=== PATIENT | female | born 1985 | race Caucasian/White ===

== ENCOUNTER → 2020-03-28 09:10 | Outpatient (BNVA) | payer MEDICAID, SELFPAY | PROVIDERS: Family Provider Nurse Practitioner Family; PCP Nurse Practitioner Family; Visit Provider Counselor Professional | DX: F41.1 Generalized anxiety disorder (principal) | CPT/HCPCS: 90834 ==

== ENCOUNTER → 2020-04-11 08:12 | Outpatient (BNVA) | payer MEDICAID, SELFPAY | PROVIDERS: Family Provider Nurse Practitioner Family; PCP Nurse Practitioner Family; Visit Provider Counselor Professional | DX: F41.1 Generalized anxiety disorder (principal) | CPT/HCPCS: 90834 ==

== ENCOUNTER → 2020-06-13 08:24 | Outpatient (BNVA) | payer MEDICAID, SELFPAY | PROVIDERS: Family Provider Nurse Practitioner Family; PCP Nurse Practitioner Family; Visit Provider Counselor Professional | DX: F41.1 Generalized anxiety disorder (principal) | CPT/HCPCS: 90834 ==

== ENCOUNTER 2022-11-03 10:44 | Day surgery (SDC) | payer MEDICAID, SELFPAY ==
[2022-11-02 10:36] VITALS: BMI 55.4
[2022-11-03] VITALS (9 sets, daily range): BP systolic 108–178; BP diastolic 79–102; PULSE 90–100; RESP 16–97; TEMP 36.1–36.6; O2SAT 94–100
[2022-11-03 11:37] LABS: OR HCG Qualitative Urine Negative (Negative)
[2022-11-03] MEDS: sodium chloride 0.9% 1,000 ML 30 ML IV (11:40)
--- NOTE | 2022-11-03 13:09 | P.ANESASSM_ITS ---
Pre-Anesthetic Assessment Height/Weight: Height 1.65 m Weight 151.046 kg Temp Pulse Resp BP Pulse Ox O2 Del Method 97.6 F 92 18 142/100 96 11/03/22 11:42 11/03/22 11:42 11/03/22 11:42 11/03/22 11:42 11/03/22 11:42 11/03/22 11:42 Preop Diagnosis: AUB Operation Date: 11/03/22 13:00 Proposed Procedures p Laparoscopic bilateral salpingectomy 78624,Z30.2(Bilateral) - Daya Hwang MD Familial anesthetic complications: None Was Beta Jessie taken within 24 hours: N/A Was Clonidine taken within 24 hours: N/A Last intake: Intake Last Liquid Date 11/02/22 Last Liquid Time 23:30 Last Solid Date 11/02/22 Last Solid Time 23:30 Social No alcohol and No tobacco Exam alert, oriented x 3, clear to auscultation bilaterally and regular rate & rhythm Airway Mallampati: Class II Dentition: other (no teeth) Pulmonary Asthma Metabolic Morbid Obesity [facility] [place] Fibromyalgia Anesthetic Plan ASA status: 3 Anesthesia: General Risk of > 500 ml blood loss (7ml/kg in children): No Medications/Allergies Home Medications Medication Instructions Recorded Confirmed Last Taken Type cyclobenzaprine 10 mg tablet 10 mg PO TID PRN muscle spasms 09/03/22 11/02/22 11/02/22 History drospirenone (contraceptive) 4 mg 1 tab PO DAILY 09/03/22 11/02/22 11/02/22 History (28) tablet venlafaxine 37.5 mg 37.5 mg PO DAILY 09/03/22 11/02/22 11/02/22 History capsule,extended release 24 hr ibuprofen 200 mg tablet 800 mg PO Q6H PRN Pain 11/02/22 11/02/22 10/27/22 History albuterol 90 mcg/actuation aerosol 90 mcg inhalation PRN 11/03/22 11/03/22 Unknown History inhaler fluticasone propionate 50 50 mcg intranasal PRN 11/03/22 11/03/22 Unknown History mcg/actuation nasal spray,suspension Allergies Allergy/AdvReac Type Severity Reaction Status Date / Time No Known Allergies Allergy Verified 11/03/22 11:24 Current Medications Generic Name Dose Route Start Last Admin Trade Name Freq PRN Reason Stop Dose Admin Sodium Chloride 1,000 mls @ 30 mls/hr 11/03/22 11:00 11/03/22 11:40 Sodium Chloride 0.9% IV 11/04/22 10:59 30 mls/hr .Q24H LAURA Administration PFSH Anesthesia Medical History (Updated 10/26/22 @ 11:45 by Daya Hwang MD) Anxiety and depression Fibromyalgia Restless leg Scoliosis Surgical History (Updated 09/05/22 @ 15:29 by Daya Hwang MD) History of delivery x2 Family History (Updated 09/03/22 @ 08:12 by Deana Jang LPN) Father Diabetes Grandfather Heart disease Maternal Mother Hypertension Grandmother Uterine cancer Paternal Denies family history of Colon cancer Ovarian cancer Hypercholesteremia Breast cancer Thyroid disease Stroke Data Anesthesia Cardiac Studies: No Data to Display
--- NOTE | 2022-11-03 13:27 | W.PM.OPSUD ---
Surgery/Procedure H&P Update DATE OF PROCEDURE: November 03, 2022 DATE H&P PERFORMED: 10/26/22 H&P UPDATE INFORMATION: I have reviewed H&P completed within last 30 days, I have examined patient prior to procedure and No changes to prior documentation CHANGES TO PREVIOUS DOCUMENTATION: The procedure to be performed is hysteroscopy, dilation and curettage with myosure. The H&P is correct, as well as the orders. There was a scheduling error and the patient has confirmed the procedure is hysteroscoy and not sterilization. PREOP DIAGNOSIS: AUB PLANNED PROCEDURE: Operation Date: 11/03/22 13:00 Proposed Procedures p Hysteroscopy, dilation and curettage with myosure - Daya Hwang MD Related Problem List Diagnoses (1) Morbid obesity with BMI of 50.0-59.9, adult: (2) Abnormal uterine bleeding (AUB):
[2022-11-03] MEDS: ceFAZolin 3,000 MG in sodium chloride 0.9% (100 ml) 100 ML 200 MG IV (13:45)
[2022-11-03] MEDS: miSOPROStol 200 mcg Tablet 800 MCG VAGINAL (14:38)
--- NOTE | 2022-11-03 15:05 | P.OP_ITS ---
Operative Report Date of procedure: November 03, 2022 Pre-op diagnosis: Preop Diagnosis AUB Post-op diagnosis: same Post-op findings: 9 week sized uterus with excessive tissue Procedure done: hysteroscopy, dilation and curettage with myosure Specimens removed/disposition: endometrial curettings to pathology Surgeon: Daya Hwang Anesthesia: MAC Estimated blood loss (mL): 15 IV fluids (mL): 700 Urine output (mL): 50 Complications: none Findings: hysteroscopy deficit 100 ml Condition: stable Disposition: PACU Procedure: The patient was taken to the operating room where monitored anesthesia was administered and to be adequate. She was prepped and draped in the normal sterile fashion in the dorsal lithotomy position in [facility]. A weighted speculum was placed into the vagina and the anterior lip of the cervix grasped with a single-tooth tenaculum. The cervix was stenotic and 800 mcg of cytotec was placed vaginally. The cervix softened and the uterus was sounded to 9 cm. The cervix was dilated to 16 Frisian. The hysteroscope was advanced into the endometrial cavity. There was excessive tissue visualized. The MyoSure device was activated and the tissue was removed. There was bleeding from the beginning, making it difficult to take pictures. For completeness, a sharp curettage was performed after the hysteroscopy. All instruments were removed. The patient tolerated the procedure well. Sponge lap and needle counts were correct x3. She was taken to the recovery room in stable condition.
--- NOTE | 2022-11-03 15:12 | PM.DCS ---
Discharge Providers Date of Admission: 11/03/22 Date of Discharge: November 03, 2022 Attending Provider at Discharge: Daya Hwang MD Primary Care Provider: Sasha Villarreal Diagnoses at Discharge Discharge Diagnosis (1) Morbid obesity with BMI of 50.0-59.9, adult: Status: Acute (2) Abnormal uterine bleeding (AUB): Status: Acute Reason for Visit Reason for Visit: Z30.2 Hospital Course Hospital Course The patient was admitted for surgery. She did well postoperatively and was ready for discharge. Discharge Data Studies Completed and Pending Pending at discharge Category Date Time Status Pathology: Surgical [PTH] Routine Pth 11/03/22 14:44 Ordered Laboratory Results Urine HCG, Qual Negative (Negative) 11/03/22 11:27 Vitals Last Vital Signs Temp 97.6 F 11/03/22 11:42 Pulse 92 11/03/22 11:42 Resp 18 11/03/22 11:42 BP 142/100 11/03/22 11:42 Pulse Ox 96 11/03/22 11:42 O2 Del Method 11/03/22 11:42 O2 Flow Rate 6 11/03/22 15:03 Discharge Plan Discharge Patient Disposition: Home Condition: Stable Prescriptions: Continued cyclobenzaprine 10 mg tablet 10 mg PO TID PRN (Reason: muscle spasms) venlafaxine 37.5 mg capsule,extended release 24hr 37.5 mg PO DAILY drospirenone (contraceptive) 4 mg (28) tablet 1 tab PO DAILY ibuprofen 200 mg Tablet 800 mg PO Q6H PRN (Reason: Pain) albuterol 90 mcg/actuation Aerosol 90 mcg INHALATION PRN fluticasone propionate 50 mcg/actuation [place],Suspension 50 mcg INTRANASAL PRN Discharge Orders: Discharge Order (Routine); Ordered 11/03/22 Ordered By: Daya Hwang Discharge Attestations Time Spent in Discharge Care*: less than 30 min Quality Metrics Clinical Quality Measures [ No reported AMI, CVA or VTE this stay] Coding Level of Care Code Acute Code for Chg Fwd Diagnoses Morbid obesity with BMI of 50.0-59.9, adult E66.01; Z68.43 Abnormal uterine bleeding (AUB) N93.9
[2022-11-03] MEDS: ketorolac 30 mg/mL INJ IVP (15:21)
--- NOTE | 2022-11-03 16:00 | ANE.PACU2 ---
Inpatient post-anesthesia follow up: Airway intact: Yes Vital signs: Temperature 97.9 F Pulse Rate 90 Respiratory Rate 16 Blood Pressure 178/98 Pulse Oximetry 98 Oxygen Delivery Me thod Room Air Oxygen Flow Rate 6 Fraction of Inspir ed Oxygen Hydration adequate: Yes Nausea and vomiting: No Pain level: 1 Mental status: Baseline
== END 2022-11-03 16:40 | disposition home or self-care (01) ==
PROVIDERS: Anesthesiology; PCP Nurse Practitioner Family; Visit Provider Obstetrics & Gynecology
PROC: (CPT 58120; 2022-11-03 12:40)
PROC: 0UDB8ZZ Extraction of Endometrium, Via Natural or Artificial Opening Endoscopic (ICD-10-PCS; CPT 58558; 2022-11-03 12:40)
DX: N93.9 Abnormal uterine and vaginal bleeding, unspecified (principal); J45.909 Unspecified asthma, uncomplicated; E66.01 Morbid (severe) obesity due to excess calories; Z68.43 Body mass index [BMI] 50.0-59.9, adult; M79.7 Fibromyalgia
CPT/HCPCS: 58558; 81025; 84703; 88305; J0330; J0690; J1100; J1885; J2250; J2405; J2704; J3010; J7030

== ENCOUNTER 2023-02-15 14:02 | Emergency (ER) | payer MEDICAID, SELFPAY ==
[2023-02-15 14:29] VITALS: BP 142/89; PULSE 95; RESP 16; TEMP 36.7; O2SAT 98; BMI 53.2
--- NOTE | 2023-02-15 14:38 | W.ED.ABDPA2 ---
HPI - Abdominal Pain General: Chief Complaint: Abdominal Pain Stated Complaint: pain middle abd Time Seen by Provider: 02/15/23 14:33 Source: patient Mode of arrival: ambulatory History of Present Illness: 37-year-old female presents emergency room with complaint of abdominal pain with poor appetite. She has had symptoms for little over 3 weeks now she had went seen her doctor 3 days ago they thought she had a bad gallbladder and had set her up for an ultrasound which is yet to be done. She has had worsening pain today she states anytime she eats pretty much any solid food she gets severe abdominal pain epigastric right upper quadrant region she has not had any acholic stools. No associated vomiting but very nauseous. She has not had any hematochezia or melena. She has not had any dysuria urgency or frequency no history of kidney stones. Previous section hysterectomy. MD elicited complaint: abdominal pain Onset (ago): week(s) (3) Pain Consistency: intermittent Location: RUQ Severity: moderate Quality: cramping Radiation: R flank and back Exacerbating factors: nothing Relieving factors: nothing Associated Symptoms: Reports anorexia, bloating and nausea; Denies belching, change in bowel habits, change in stool character, chills, coffee ground emesis, constipation, GI cramping, diarrhea, dyspepsia, dysuria, excessive flatus, fever(s), heartburn, hematochezia, hematuria, hematemesis, fecal incontinence, loose stools, melena, poor appetite, syncope and vomiting Related Data: Patient : No Review of Systems Const: Denies: fever(s) or chills ENMT: Denies: throat pain, ear or mastoid pain, nasal discharge or nasal congestion Card: Denies: chest pain, palpitations or syncope Resp: Denies: dyspnea, productive cough or non-productive cough GI: Reports: abdominal pain, nausea and bloating; Denies: vomiting, hematemesis, coffee ground emesis, heartburn, diarrhea, constipation, GI cramping, belching, excessive flatus, fecal incontinence, change in bowel habits, change in stool character, hematochezia or melena : Denies: dysuria, urinary frequency, urinary urgency or hematuria Skin/Breast: Denies: rash or pruritus PFSH ED PFSH: Medical History Anxiety and depression Fibromyalgia Restless leg Scoliosis Surgical History History of delivery x2 Family History Father Diabetes Grandfather Heart disease Maternal Mother Hypertension Grandmother Uterine cancer Paternal Denies family history of Colon cancer Ovarian cancer Hypercholesteremia Breast cancer Thyroid disease Stroke Social History Smoking and tobacco status: current every day smoker e-cigarettes E-Cigarette Details: vaporizer device E-cig/vape details: 5% Second hand smoke exposure: Yes Alcohol intake: current Alcohol intake frequency: holidays/special occasions only Alcohol type: beer and hard liquor Substance/Drug Use: never Household members: children Marital status: / service: No Current occupational status: employed Current gender identity: Female Lizette/Mandaen: [employer] Special lizette needs: No Physical Exam Const: GENERAL APPEARANCE: cooperative and comfortable ORIENTATION/CONSCIOUSNESS: Yes awake, Yes oriented to person, Yes oriented to place and Yes oriented to time HENMT: COMMON NORMALS: normocephalic, atraumatic and hearing grossly normal bilaterally HEAD & SCALP: normocephalic and atraumatic Resp: COMMON NORMALS: normal respiratory effort, No retractions, No use of accessory muscles and clear to auscultation bilaterally AUSCULTATION: clear to auscultation bilaterally Cardio: COMMON NORMALS: regular rate, regular rhythm and No murmurs present (Cardio) RATE: regular rate RHYTHM: regular rhythm GI: COMMON NORMALS: No hepatosplenomegaly present AUSCULTATION: Yes normoactive bowel sounds PALPATION: Yes Tenderness to palpation present (GI) Details: RUQ, No Guarding due to palpation present (GI) and Yes No hepatosplenomegaly present Extremity: COMMON NORMALS: normal to inspection, capillary refill normal, no clubbing, cyanosis or edema, no calf tenderness and no pedal edema Neuro: SENSORIUM/ORIENTATION: Yes oriented to person, Yes oriented to place and Yes oriented to time Skin: COMMON NORMALS: no rashes or lesions noted GENERAL SKIN EXAM: no rashes or lesions noted Course Vital Signs: Vital signs: Vital Signs Temperature 98.1 F 02/15/23 14:29 Pulse Rate 94 02/15/23 15:06 Respiratory Rate 12 02/15/23 15:06 Blood Pressure 135/89 02/15/23 15:06 Pulse Oximetry 97 02/15/23 15:06 Oxygen Delivery Me thod Room Air 02/15/23 14:29 MDM - Abdominal Pain Medical Decision Making Ultrasound gallbladder shows cholelithiasis with no evidence of acute cholecystitis White count slightly elevated, liver enzymes T. bili are normal. We discharge patient home discussed biliary colic dietary adjustments that may reduce symptoms discharged home with hydrocodone antiemetics bland diet started on Augmentin have her follow-up with Dr. Sol for definitive care Medical Records I reviewed the patient's medical records. Lab Data I reviewed the patient's lab results. 02/15/23 14:47 02/15/23 14:47 Labs/Radiology: Radiology Impressions Gallbladder Ultrasound 02/15/23 14:52 IMPRESSION: 1. Hepatomegaly diffuse fatty infiltration the liver. 2. Cholelithiasis. 3. No gallbladder wall thickening or pericholecystic fluid. Recommend correlation with biliary function studies. 4. Normal common bile duct measuring 2.5 mm. Laboratory Results WBC 15.4 10^3/uL (4.0-10.0) H 02/15/23 14:47 RBC 4.69 10^6/uL (4.1-5.3) 02/15/23 14:47 Hgb 11.0 g/dL (11.5-15.3) L 02/15/23 14:47 Hct 36.3 % (37.0-47.0) L 02/15/23 14:47 MCV 77.4 fl (81-99) L 02/15/23 14:47 MCH 23.5 pg (28.0-34.0) L 02/15/23 14:47 MCHC 30.3 g/dL (30.0-36.0) 02/15/23 14:47 RDW 13.9 % (12.1-15.1) 02/15/23 14:47 Plt Count 335 10^3/cmm (130-400) 02/15/23 14:47 MPV 9.5 fL (7.4-10.4) 02/15/23 14:47 Neut % (Auto) 74.9 % 02/15/23 14:47 Lymph % (Auto) 18.4 % 02/15/23 14:47 [place] % (Auto) 4.6 % 02/15/23 14:47 Eos % (Auto) 1.2 % 02/15/23 14:47 Baso % (Auto) 0.3 % 02/15/23 14:47 Neut # (Auto) 11.54 10^3/uL (1.8-7.7) H 02/15/23 14:47 Lymph # (Auto) 2.8 10^3/uL (0.8-4.8) 02/15/23 14:47 [place] # (Auto) 0.7 10^3/uL (0.2-0.9) 02/15/23 14:47 Eos # (Auto) 0.2 10^3/uL (0.0-0.8) 02/15/23 14:47 Baso # (Auto) 0.1 10^3/uL (0.0-0.1) 02/15/23 14:47 Nucleated RBC % (auto) 0 % 02/15/23 14:47 Nucleated RBCs # 0.0 /100WBC 02/15/23 14:47 Sodium 138 mmol/L (136-145) 02/15/23 14:47 Potassium 4.1 mmol/L (3.5-5.1) 02/15/23 14:47 Chloride 99 mmol/L (98-107) 02/15/23 14:47 Carbon Dioxide 28 mmol/L (22-29) 02/15/23 14:47 Anion Gap 15.1 (5-19) 02/15/23 14:47 BUN 10 mg/dL (6-20) 02/15/23 14:47 Creatinine 0.6 mg/dL (0.5-0.9) 02/15/23 14:47 GFR Calculation 113.1 mL/min (90-130) 02/15/23 14:47 Glucose 163 mg/dL (65-115) H 02/15/23 14:47 Calculated Osmolality 289 mOsm/kg (285-295) 02/15/23 14:47 Calcium 8.9 mg/dL (8.5-10.5) 02/15/23 14:47 Total Bilirubin 0.2 mg/dL (0.15-1.2) 02/15/23 14:47 AST 8 U/L (0-32) 02/15/23 14:47 ALT 7 U/L (0-33) 02/15/23 14:47 Alkaline Phosphatase 102 U/L (35-105) 02/15/23 14:47 Total Protein 7.3 g/dL (6.6-8.7) 02/15/23 14:47 Albumin 3.7 g/dL (3.5-5.2) 02/15/23 14:47 Globulin 3.6 g/dL (1.3-4.6) 02/15/23 14:47 Lipase 22 U/L (13-60) 02/15/23 14:47 Urine Color Yellow (Yellow) 02/15/23 14:50 Urine Appearance Sl hazy (CLEAR) A 02/15/23 14:50 Urine pH 5 (5-7) 02/15/23 14:50 Ur Specific [place] 1.025 (1.005-1.030) 02/15/23 14:50 Urine Protein Neg (Negative) 02/15/23 14:50 Urine Glucose (UA) Norm (Normal) 02/15/23 14:50 Urine Ketones Negative (Negative) 02/15/23 14:50 Urine Blood Neg (Negative) 02/15/23 14:50 Urine Nitrate Negative (Negative) 02/15/23 14:50 Urine Bilirubin Neg (Negative) 02/15/23 14:50 Urine Urobilinogen Norm mg/dL (Negative) 02/15/23 14:50 Ur Leukocyte Esterase Negative (Negative) 02/15/23 14:50 Urine RBC 0-4 /hpf (0-2) H 02/15/23 14:50 Urine WBC 5-10 /hpf (0-5) H 02/15/23 14:50 Ur Squamous Epith Cells 5-10 /hpf (0-5) H 02/15/23 14:50 Amorphous Sediment Not Reportable 02/15/23 14:50 Urine Bacteria Trace /hpf (NONE) 02/15/23 14:50 Urine Mucus 2+ /hpf 02/15/23 14:50 Discharge Plan Discharge Patient Disposition: Home Clinical Impression: Biliary colic, Cholelithiasis Condition: Stable Prescriptions: New Augmentin 500-125 mg tablet 1 tab PO TID Qty: 21 0RF hydrocodone-acetaminophen 5-325 mg tablet 1 tab PO Q6H PRN (Reason: pain) Qty: 15 0RF promethazine 25 mg tablet 25 mg PO Q6H PRN (Reason: nausea and vomiting) Qty: 20 0RF No Action pantoprazole [Protonix] 40 mg tablet,delayed release (DR/EC) 40 mg PO DAILY Qty: 30 1RF ondansetron HCl 4 mg tablet 4 mg PO QID PRN (Reason: nausea and vomiting) Qty: 20 0RF cyclobenzaprine 10 mg tablet 10 mg PO TID PRN (Reason: muscle spasms) venlafaxine 37.5 mg capsule,extended release 24hr 37.5 mg PO DAILY ibuprofen 200 mg Tablet 800 mg PO Q6H PRN (Reason: Pain) albuterol 90 mcg/actuation Aerosol 90 mcg INHALATION PRN fluticasone propionate 50 mcg/actuation [place],Suspension 50 mcg INTRANASAL PRN Discharge Orders: Discharge ED (Routine); Ordered 02/15/23 Ordered By: Geraldo Morgan Discharge Diet: As Directed Discharge Activity: Increase activity as tolerated Patient Instructions: Biliary Colic (ED), Low Fat Diet (ED), Abdominal Pain (ED), Opioid Safety, Pain Management Coding Level of Care Code ED [employer] for Brock Mason
--- NOTE | 2023-02-15 14:52 | US_ITS ---
WS: [id number] ULTRASOUND ABDOMEN LIMITED CLINICAL INFORMATION: RUQ abd pain COMPARISON: None. FINDINGS: Liver Size: Enlarged Craniocaudal length: 19.0 cm. Echogenicity: Coarse Surface nodularity: None. Mass (size and location): None. Bile ducts Intrahepatic ducts: Normal. Common bile duct diameter: 0.3 cm. Gallbladder Cholelithiasis Gallstones: Present Gallbladder sludge: None. Gallbladder wall thickening: None. Pericholecystic fluid: None. Pancreas Normal as visualized. Right kidney: Normal. Hydronephrosis: None. Size: 12.6 cm x 5.3 cm x 4.7 cm. Abdominal aorta and IVC Visualized portions are normal. Ascites: None. US/US gall bladder [id number] IMPRESSION: 1. Hepatomegaly diffuse fatty infiltration the liver. 2. Cholelithiasis. 3. No gallbladder wall thickening or pericholecystic fluid. Recommend correlat ion with biliary function studies. 4. Normal common bile duct measuring 2.5 mm.
[2023-02-15 14:56] VITALS: BP 135/89; PULSE 96; RESP 12; O2SAT 97
[2023-02-15 14:59] LABS: Basophils # 0.1 10^3/uL (0.0-0.1); Basophils % 0.3 %; Eosinophils # 0.2 10^3/uL (0.0-0.8); Eosinophils % 1.2 %; Hematocrit 36.3 % (37.0-47.0); Lymphocytes # 2.8 10^3/uL (0.8-4.8); Lymphocytes % 18.4 %; Mean Corpuscular HGB Conc 30.3 g/dL (30.0-36.0); Mean Corpuscular Hemoglobin 23.5 pg (28.0-34.0); Mean Corpuscular Volume 77.4 fl (81-99); Mean Platelet Volume 9.5 fL (7.4-10.4); Monocytes # 0.7 10^3/uL (0.2-0.9); Monocytes % 4.6 %; Neutrophils # 11.54 10^3/uL (1.8-7.7); Neutrophils % 74.9 %; Nucleated Red Blood Cells % 0 %; Platelet Count 335 10^3/cmm (130-400); Red Blood Count 4.69 10^6/uL (4.1-5.3); Red Cell Distribution Width 13.9 % (12.1-15.1); White Blood Count 15.4 10^3/uL (4.0-10.0)
[2023-02-15 15:06] VITALS: BP 135/89; PULSE 94; RESP 12; O2SAT 97
[2023-02-15 15:18] LABS: Add Urine Microscopic? YES; Bacteria Urine TRACE /hpf; Bilirubin Urine Neg (Negative); Blood Urine Neg (Negative); Glucose Urine UA Norm (Normal); Ketones Urine Negative (Negative); Leukocyte Esterase Urine Negative (Negative); Mucus Urine 2+ /hpf; Nitrate Urine Negative (Negative); Protein Urine Neg (Negative); RBC Urine 0-4 /hpf (0-2); Specific Gravity, Urine 1.025 (1.005-1.030); Urine Appearance SL Hazy (CLEAR); Urine Color Yellow (Yellow); Urobilinogen Urine Norm (Negative); pH Urine 5 (5-7)
[2023-02-15 15:18] LABS: Alanine Aminotransferase 7 U/L (0-33); Albumin Level 3.7 g/dL (3.5-5.2); Alkaline Phosphatase 102 U/L (35-105); Anion Gap 15.1 (5-19); Aspartate Amino Transferase 8 U/L (0-32); Blood Urea Nitrogen 10 mg/dL (6-20); Calcium 8.9 mg/dL (8.5-10.5); Carbon Dioxide 28 mmol/L (22-29); Chloride 99 mmol/L (98-107); Globulin 3.6 g/dL (1.3-4.6); Glomerular Filtration Rate 113.1 mL/min (90-130); Glucose 163 mg/dL (65-115); Lipase 22 U/L (13-60); Osmolality Calculated 289 mOsm/kg (285-295); Potassium 4.1 mmol/L (3.5-5.1); Sodium 138 mmol/L (136-145); Total Bilirubin 0.2 mg/dL (0.15-1.2); Total Protein 7.3 g/dL (6.6-8.7)
[2023-02-15 15:19] LABS: Add Urine Culture? No
--- NOTE | 2023-02-16 09:28 | DCPLANNER ---
Addendum entered by Hillary Shen 03/11/23 10:02: Patient had a follow up appointment scheduled with general surgery - patient did attend appointment Addendum entered by Hillary Shen 02/19/23 09:16: Patient has a follow up appointment scheduled for Wednesday, March 03, 2023 at 3:[address] Sol at general surgery. Original Note: network contract manager had message to schedule a follow up appointment for patient with general surgery. network contract manager sent patients information to the front office staff at general surgery. Patients information will be printed and reviewed. Clinic will call patient with appointment information.
--- NOTE | 2023-02-17 10:15 | DCPLANNER ---
regulated program manager was triggered to call patient due to no primary care physician - patient sees Razia Ugarte.
== END 2023-02-15 15:45 | disposition home or self-care (01) ==
PROVIDERS: Emergency Medicine; Emergency Provider Family Medicine; PCP Nurse Practitioner Family
DX: K80.50 Calculus of bile duct without cholangitis or cholecystitis without obstruction (principal)
CPT/HCPCS: 36415; 76705; 80053; 81001; 83690; 85025; 99284

== ENCOUNTER → 2023-03-03 15:05 | Outpatient (BNVA) | payer MEDICAID, SELFPAY | PROVIDERS: PCP Nurse Practitioner Family; Visit Provider Surgery | DX: K80.20 Calculus of gallbladder without cholecystitis without obstruction (principal) | CPT/HCPCS: 99203 ==

== ENCOUNTER 2023-04-01 07:03 | Day surgery (SDC) | payer MEDICAID, SELFPAY ==
[2023-03-31 14:04] VITALS: BMI 54.2
[2023-04-01] VITALS (15 sets, daily range): BP systolic 138–168; BP diastolic 80–110; PULSE 58–84; RESP 16–20; TEMP 36.2–36.6; O2SAT 93–100
--- NOTE | 2023-04-01 07:09 | W.PM.OPSUD ---
Surgery/Procedure H&P Update DATE OF PROCEDURE: April 01, 2023 DATE H&P PERFORMED: 03/03/23 H&P UPDATE INFORMATION: I have reviewed H&P completed within last 30 days, I have examined patient prior to procedure and No changes to prior documentation PLANNED PROCEDURE: Operation Date: 04/01/23 09:15 Proposed Procedures p [id number] Lap Ami k80.20(Not Applicable) - Vu Sol DO
[2023-04-01] MEDS: sodium chloride 0.9% 1,000 ML 30 ML IV (08:06)
[2023-04-01] MEDS: ceFAZolin 1,000 mg SDV 1000 MG IVP (08:38)
[2023-04-01] MEDS: ceFAZolin 2,000 MG in sodium chloride 0.9% (plus) 50 ML 100 MG IV (08:38)
--- NOTE | 2023-04-01 08:40 | P.OP_ITS ---
Operative Report Date of procedure: April 01, 2023 Pre-op diagnosis: Symptomatic cholelithiasis Post-op diagnosis: same Procedure done: Laparoscopic cholecystectomy Specimens removed/disposition: Gallbladder Surgeon: Vu Sol DO Anesthesia: General Estimated blood loss (mL): 5 Complications: none apparent Brief History: This very pleasant 37-year-old female who presented my office with symptomatic cholelithiasis. Laparoscopic cholecystectomy is indicated. The risk benefits were explained documented. Procedure: Patient was wheeled into the operative room and placed on the OR table in a supine position. Abdomen was inspected prepped and draped in usual sterile fashion. Time-out was performed and all present were in agreement. A 15 blade scalp was used to make a stab incision in the left upper quadrant and intra- abdominal insufflation was achieved using a Veress needle. After localizing the tissue incisions were made and a 5 millimeter trocar was placed into the umbilicus as well as 2 in the right upper quadrant. A 12 millimeter trocar was placed in the epigastrium. Gallbladder was grasped and elevated. The triangle of Calot was carefully dissected using blunt dissection and electrocautery until the triangle of [place]ot clearly identified. The cystic duct was clipped proximally and double clipped distally. The duct was then ligated proximally. The cystic artery was doubly clipped and ligated. The gallbladder was then removed from the liver bed using electrocautery. The gallbladder was removed from the abdomen using an Endo-Catch bag through the epigastric incision. The liver bed was inspected and no bleeding was seen. The abdomen was irrigated and suctioned. All ports removed. Skin was washed and dried. Incisions were closed with 4-0 Monocryl in a subcuticular interrupted fashion. Skin glue was applied. Patient tolerated the procedure well.
[2023-04-01] MEDS: lidocaine-epi 2% 20 mL INJ INJECTION (09:13)
[2023-04-01] MEDS: HYDROmorphone 1 mg/mL INJ 1 mL 0.5 MG IVP (09:52)
--- NOTE | 2023-04-01 10:02 | P.ANESASSM_ITS ---
Pre-Anesthetic Assessment Height/Weight: Height 1.65 m Weight 147.871 kg Temp Pulse Resp BP Pulse Ox O2 Del Method O2 Flow Rate 97.2 F L 71 16 147/98 93 Nasal Cannula 3 04/01/23 09:39 04/01/23 09:54 04/01/23 09:54 04/01/23 09:54 04/01/23 09:54 04/01/23 09:54 04/01/23 09:54 Operation Date: 04/01/23 09:15 Proposed Procedures p [id number] Lap Ami k80.20(Not Applicable) - Vu Sol DO Familial anesthetic complications: none Was Beta Jessie taken within 24 hours: N/A Was Clonidine taken within 24 hours: N/A Last intake: Intake Last Liquid Date 03/31/23 Last Liquid Time 20:00 Last Solid Date 03/31/23 Last Solid Time 20:00 Social Tobacco (vapes) and No alcohol Exam alert, oriented x 3, clear to auscultation bilaterally and regular rate & rhythm Airway Submandibular: within normal limits Cervical ROM: within normal limits Mallampati: Class II Dentition: false Pulmonary Asthma GI Gastroesophageal Reflux Disease Metabolic Morbid Obesity Neuropsych Anxiety and Depression Anesthetic Plan ASA status: 3 Anesthesia: General Medications/Allergies Home Medications Medication Instructions Recorded Confirmed Last Taken Type cyclobenzaprine 10 mg tablet 10 mg PO TID PRN muscle spasms 09/03/22 03/31/23 03/30/23 History venlafaxine 37.5 mg 37.5 mg PO DAILY 09/03/22 04/01/23 03/30/23 History capsule,extended release 24 hr ibuprofen 200 mg tablet 800 mg PO PRN PRN Pain 11/02/22 04/01/23 03/25/23 History albuterol 90 mcg/actuation aerosol 90 mcg inhalation PRN 11/03/22 04/01/23 03/30/23 History inhaler fluticasone propionate 50 50 mcg intranasal PRN 11/03/22 04/01/23 03/30/23 History mcg/actuation nasal spray,suspension pantoprazole 40 mg tablet,delayed 40 mg PO DAILY #30 tabs 02/12/23 03/31/23 03/31/23 Rx release (Protonix) ondansetron HCl 4 mg tablet 4 mg PO QID PRN nausea and 03/01/23 04/01/2323 Rx vomiting #20 tabs Allergies Allergy/AdvReac Type Severity Reaction Status Date / Time No Known Allergies Allergy Verified 03/31/23 13:54 Current Medications Generic Name Dose Route Start Last Admin Trade Name Cristina PRN Reason Stop Dose Admin Hydromorphone HCl 0.5 mg 04/01/23 09:52 04/01/23 09:52 Hydromorphone 1 Mg/Ml Inj 1 Ml IVP 04/02/23 09:52 0.5 mg Q10M PRN Administration Pain level 6-10 PACU Phase I Sodium Chloride 1,000 mls @ 30 mls/hr 04/01/23 07:30 04/01/23 08:06 Sodium Chloride 0.9% IV 04/02/23 07:29 30 mls/hr .Q24H LAURA Administration PFSH Anesthesia Medical History (Updated 03/03/23 @ 16:03 by Vu Sol DO) Anemia Anxiety and depression Fibromyalgia Restless leg Scoliosis Surgical History (Updated 03/03/23 @ 16:03 by Vu Sol DO) History of delivery x2 History of hysterectomy Family History Father Diabetes Grandfather Heart disease Maternal Mother Hypertension Grandmother Uterine cancer Paternal Denies family history of Colon cancer Ovarian cancer Hypercholesteremia Breast cancer Thyroid disease Stroke Social History Smoking and tobacco status: current every day smoker e-cigarettes E-Cigarette Details: vaporizer device E-cig/vape details: 5% Second hand smoke exposure: Yes Alcohol intake: current Alcohol intake frequency: holidays/special occasions o nly Alcohol type: beer and hard liquor Substance/Drug Use: never Household members: children Marital status: / service: No Current occupational status: employed Current gender identity: Female Lizette/Anglican: Restorationism Special lizette needs: No Data Anesthesia Cardiac Studies: No Data to Display
--- NOTE | 2023-04-01 13:42 | ANE.PACU2 ---
Inpatient post-anesthesia follow up: Airway intact: Yes Vital signs: Temperature 97.8 F Pulse Rate 81 Respiratory Rate 16 Blood Pressure 140/80 Pulse Oximetry 96 Oxygen Delivery Me thod Room Air Oxygen Flow Rate 3 Fraction of Inspir ed Oxygen Hydration adequate: Yes Nausea and vomiting: No Pain level: 3 Mental status: Baseline
== END 2023-04-01 13:00 | disposition home or self-care (01) ==
PROVIDERS: PCP Nurse Practitioner Family; Visit Provider Surgery
PROC: 0FT44ZZ Resection of Gallbladder, Percutaneous Endoscopic Approach (ICD-10-PCS; CPT 47562; principal; 2023-04-01 09:05)
DX: K80.10 Calculus of gallbladder with chronic cholecystitis without obstruction (principal); F17.290 Nicotine dependence, other tobacco product, uncomplicated; K21.9 Gastro-esophageal reflux disease without esophagitis; E66.01 Morbid (severe) obesity due to excess calories; Z68.43 Body mass index [BMI] 50.0-59.9, adult
CPT/HCPCS: 47562; 88304; J0690; J1100; J1170; J1200; J2250; J2405; J2704; J3010; J3490; J7030

== ENCOUNTER → 2023-04-09 10:06 | Outpatient (BNVA) | payer MEDICAID, SELFPAY | PROVIDERS: PCP Nurse Practitioner Family; Visit Provider Nurse Practitioner Family | DX: R50.9 Fever, unspecified (principal) | CPT/HCPCS: 87426 ==

== ENCOUNTER → 2023-05-24 10:42 | Outpatient (BNVA) | payer MEDICAID, SELFPAY | PROVIDERS: PCP Nurse Practitioner Family; Visit Provider Nurse Practitioner Family | DX: D50.9 Iron deficiency anemia, unspecified (principal); R73.9 Hyperglycemia, unspecified; R53.83 Other fatigue | CPT/HCPCS: 80053; 80061; 82306; 82728; 82746; 83036; 83550; 83735; 84439; 84443; 85025; 86376 ==

== ENCOUNTER → 2023-06-03 10:50 | Outpatient (BNVA) | payer MEDICAID, SELFPAY | PROVIDERS: PCP Nurse Practitioner Family; Visit Provider Nurse Practitioner Family | DX: J02.9 Acute pharyngitis, unspecified (principal) | CPT/HCPCS: 87071; 87880 ==

== ENCOUNTER → 2023-09-17 15:29 | Outpatient (BNVA) | payer MEDICAID, SELFPAY | PROVIDERS: PCP Nurse Practitioner Family; Visit Provider Nurse Practitioner Family | DX: R07.9 Chest pain, unspecified (principal) | CPT/HCPCS: 93005 ==

== ENCOUNTER 2023-09-20 09:21 | Emergency (ER) | payer MEDICAID, SELFPAY ==
[2023-09-20 09:29] VITALS: BP 155/103; PULSE 97; RESP 16; TEMP 36.5; O2SAT 96; BMI 48.6
--- NOTE | 2023-09-20 09:33 | ECG_ITS ---
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 [id number]
--- NOTE | 2023-09-20 09:47 | XR_ITS ---
WS: [id number] PORTABLE CHEST HISTORY: chest pain COMPARISON: None available. Lungs are clear and well expanded. No pleural effusion or pneumothorax. Cardiac size: Normal. Mediastinum/Aorta: Normal mediastinum. No osseous abnormality seen. IMPRESSION: Unremarkable portable chest.
--- NOTE | 2023-09-20 09:47 | ED_ITS ---
HPI - Chest Pain 2 General: Chief Complaint: Chest Pain Stated Complaint: numbness in face, neck, chest pains Time Seen by Provider: 09/20/23 09:25 Source: patient Mode of arrival: ambulatory Limitations: no limitations History of Present Illness: Patient is a 38-year-old female presents to ED today with a complaint of left- sided chest pain with radiation into her left arm as well as numbness to the left side of her face and somewhat into the left arm. Patient states she has had approximately 10 episodes over the past 2 weeks where she has developed left-sided chest pain with radiation to the left arm and numbness. She states the facial numbness was new with today's episode. She states it has previously been alleviated with aspirin. Patient tells me the pain in her chest feels deep and believes that is related to her heart. She states the pain she is having in her arm feels like a soreness. She feels like the numbness and tingling is mainly to her hand and wrist. She feels like the discomfort is related to an artery . Patient has not noticed any color or temperature changes to the extremity. She has not noticed any swelling. She is concerned for a few areas of ecchymosis that she has without known injury. States PCP was wanting to check her platelets and was concerned about a blood clot. She states in between episodes (episodes last about 30 minutes) she is asymptomatic. PMH includes prediabetes , obesity and asthma. MD complaint: chest pain and other (L arm numbness/L facial numbness) Onset (ago): day(s) (10 days) Timing of current episode: episodic Onset: during rest Pain location: left chest Pain radiation: left arm Severity: moderate Relieving factors: other (states she took an aspirin which alleviated her symptoms ) Exacerbating factors: nothing Associated symptoms: Deny abdominal pain, dyspnea, fever(s), nausea, palpitations, syncope or vomiting Risk Factors: Coronary artery disease risk factors: diabetes and smoking history Thoracic aortic dissection risk factors: none Related Data: On Oral Contraceptives: No Review of Systems 2 Const: Denies: fever(s), chills, body aches, fatigue or malaise Eyes: Denies: change in vision, blurry vision, blind spots, photophobia, floaters or seeing flashes Card: Reports: chest pain; Denies: palpitations, irregular heart rhythm, edema, swelling of feet/ankles, lightheadedness, syncope, pre-syncope, dyspnea on exertion, orthopnea, leg pain with exertion or acrocyanosis Resp: Denies: dyspnea, productive cough, non-productive cough, wheezing, pain on inspiration or chest congestion GI: Denies: abdominal pain, nausea, vomiting, heartburn or diarrhea : Denies: flank pain or dysuria Musc: Reports: extremity pain; Denies: neck pain, back pain, extremity swelling, joint pain, joint swelling, joint redness, joint warmth, joint stiffness, limited range of motion, muscle cramps, muscle weakness, decrease in muscle mass, loss of height or deformity Skin/Breast: Denies: rash Neuro: Reports: numbness in extremities (L UE) and sensory changes (L face); Denies: headache(s), lack of coordination, difficulty walking, frequent falls, dizziness, vertigo, confusion, behavioral changes, Slurred speech present, difficulty communicating thoughts or seizure-like activity PFSH ED 2 PFSH: Medical History Anemia Fibromyalgia Restless leg Anxiety and depression Scoliosis Surgical History History of hysterectomy History of delivery x2 Family History Father Diabetes Grandfather Heart disease Maternal Mother Hypertension Grandmother Uterine cancer Paternal Denies family history of Colon cancer Ovarian cancer Hypercholesteremia Breast cancer Thyroid disease Stroke Social History Smoking and tobacco/nicotine status: current every day tobacco/nicotine user e- cigarettes E-Cigarette Details: vaporizer device E-cig/vape details: 5% Second hand smoke exposure: Yes Alcohol intake: current Alcohol intake frequency: holidays/special occasions only Alcohol type: beer and hard liquor Substance/Drug Use: never Household members: children Marital status: / service: No Current occupational status: employed Current gender identity: Female Lizette/Christian: Yazidism Special lizette needs: No Physical Exam 2 Const: COMMON NORMALS: no acute distress, patient oriented x3, no limitations, alert and well nourished GENERAL APPEARANCE: cooperative NUTRITIONAL APPEARANCE: obese morbidly obese (BMI 48.6) HENMT: COMMON NORMALS: normocephalic and atraumatic HEAD & SCALP: normal to inspection, normocephalic and atraumatic FACE & SINUS: normal facial exam and face symmetric Eye: COMMON NORMALS: Equal, round and reactive pupils present and EOMs intact bilaterally GENERAL EYE: appearance normal, both eyes and all related structures and normal light reflex PUPIL: Yes Equal, round and reactive pupils present DIRECT OPHTHALMOSCOPY: Yes normal light reflex Neck/C-Spine: COMMON NORMALS: full ROM, no lymphadenopathy, supple and no meningeal signs GENERAL: Yes normal visual inspection CERVICAL SPINE: No pain with cervical ROM and No Cervical spine tenderness Chest: COMMONS NORMALS: normal inspection of the chest and normal palpation of entire chest wall Resp: COMMON NORMALS: normal respiratory effort and clear to auscultation bilaterally AUSCULTATION: clear to auscultation bilaterally Cardio: COMMON NORMALS: regular rate and regular rhythm RATE: regular rate RHYTHM: regular rhythm Extremity: COMMON NORMALS: normal to inspection, full ROM, capillary refill normal, no joint enlargement, no clubbing, cyanosis or edema, no calf tenderness and no pedal edema NARRATIVE EXTREMITY EXAM: pulses throughout L UE are normal; no color/temp changes noted; no edema present GENERAL: Yes normal exam except as noted Neuro: GREGOR COMA SCALE: document GCS findings [place] coma scale eye opening: Spontaneous Gregor coma scale verbal response: Orientated [place] coma scale motor response: Obey commands [place] coma scale total score: 15 COMMON NORMALS: patient oriented x3, CN's II-XII intact bilaterally, moves all extremities, deep tendon reflexes 2+ bilaterally and gait normal S ENSORIUM/ORIENTATION: Yes alert MENINGEAL SIGNS: Yes no meningeal signs C OORDINATION/BALANCE: [id number]-[id number] test normal and [id number] test normal SPEECH: speech normal GAIT: Yes Normal gait present SENSORY EXAM: Yes other (reports altered sensation to L face/areas of L arm when compared to R) MOTOR EXAM: Pronator motor function not present, Normal motor muscle tone present throughout and Other motor observations present (L UE seems weaker compared to R but can still flex/ext against resistance) COORDINATION: f [id number] test normal and [id number] test normal OTHER: NIH score was 1 for the sensory defect Skin: COMMON NORMALS: no rashes or lesions noted GENERAL SKIN EXAM: no rashes or lesions noted Course 2 Vital Signs: Vital signs: Vital Signs Temperature 97.7 F 09/20/23 09:29 Pulse Rate 97 09/20/23 09:29 Respiratory Rate 16 09/20/23 09:29 Blood Pressure 155/103 09/20/23 09:29 Pulse Oximetry 96 09/20/23 09:29 Oxygen Delivery Me thod Room Air 09/20/23 09:29 MDM - Chest Pain Medical Decision Making Patient is a 38-year-old female here for complaints of left-sided chest pain with radiation into her left arm as well as some numbness and tingling to the arm and left side of her face. These episodes have seemed to come and go over the past 2 weeks. She has had multiple similar episodes. While here in the emergency department no numbness to her arms pretty much resolved. Blood work including cardiac workup is unremarkable. Did do a D-dimer as she was concerned about a DVT to her left arm. No concern for this clinically. D-dimer was scantly elevated at 0.62 thus ultrasound imaging of her left arm obtained and was negative. No concern for PE. Her EKG is nonischemic. CXR is normal. At this time patient is cleared for discharge from an emergency standpoint. Recommend she follow-up with her primary care provider later this week. Return ED precautions given. Medical Records I reviewed the patient's medical records. Lab Data I reviewed the patient's lab results. 09/20/23 09:53 09/20/23 09:53 Laboratory Results WBC 13.34 10^3/uL (3.29-11.43) H 09/20/23 09:53 RBC 4.68 10^6/uL (3.85-5.65) 09/20/23 09:53 Hgb 11.40 g/dL (11.27-16.99) 09/20/23 09:53 Hct 36.2 % (36-47) 09/20/23 09:53 MCV 77.4 fl (85-98) L 09/20/23 09:53 MCH 24.4 pg (27-33) L 09/20/23 09:53 MCHC 31.5 g/dL (30-55) 09/20/23 09:53 RDW 14.8 % (12.1-15.1) 09/20/23 09:53 Plt Count 303 10^3/cmm (157-399) 09/20/23 09:53 MPV 8.4 fL (7.4-10.4) 09/20/23 09:53 Neut % (Auto) 64.8 % 09/20/23 09:53 Lymph % (Auto) 25.5 % 09/20/23 09:53 [place] % (Auto) 5.5 % 09/20/23 09:53 Eos % (Auto) 2.9 % 09/20/23 09:53 Baso % (Auto) 0.4 % 09/20/23 09:53 Neut # (Auto) 8.64 10^3/uL (1.8-7.7) H 09/20/23 09:53 Lymph # (Auto) 3.4 10^3/uL (0.8-4.8) 09/20/23 09:53 [place] # (Auto) 0.7 10^3/uL (0.2-0.9) 09/20/23 09:53 Eos # (Auto) 0.4 10^3/uL (0.0-0.8) 09/20/23 09:53 Baso # (Auto) 0.1 10^3/uL (0.0-0.1) 09/20/23 09:53 Nucleated RBC % (auto) 0 % 09/20/23 09:53 Nucleated RBCs # 0.0 /100WBC 09/20/23 09:53 D-Dimer 0.62 ug/mLFEU (0-0.59) H 09/20/23 09:53 Sodium 136 mmol/L (136-145) 09/20/23 09:53 Potassium 3.9 mmol/L (3.5-5.1) 09/20/23 09:53 Chloride 99 mmol/L (98-107) 09/20/23 09:53 Carbon Dioxide 25 mmol/L (22-29) 09/20/23 09:53 Anion Gap 15.9 (5-19) 09/20/23 09:53 BUN 10 mg/dL (6-20) 09/20/23 09:53 Creatinine 0.6 mg/dL (0.5-0.9) 09/20/23 09:53 GFR Calculation 112.5 mL/min (90-130) 09/20/23 09:53 Glucose 206 mg/dL (65-115) H 09/20/23 09:53 Calculated Osmolality 287 mOsm/kg (285-295) 09/20/23 09:53 Calcium 9.1 mg/dL (8.5-10.5) 09/20/23 09:53 Total Bilirubin 0.2 mg/dL (0.15-1.2) 09/20/23 09:53 AST 11 U/L (0-32) 09/20/23 09:53 ALT 11 U/L (0-33) 09/20/23 09:53 Alkaline Phosphatase 91 U/L (35-105) 09/20/23 09:53 Troponin T Baseline < 6 ng/L (0-10) 09/20/23 09:53 Total Protein 7.0 g/dL (6.6-8.7) 09/20/23 09:53 Albumin 3.9 g/dL (3.5-5.2) 09/20/23 09:53 Globulin 3.1 g/dL (1.3-4.6) 09/20/23 09:53 All radiology interpretation(s) finalized by discharge Discharge Plan Discharge Patient Disposition: Home Clinical Impression: Atypical chest pain Condition: Stable Prescriptions: No Action venlafaxine 75 mg tablet 75 mg PO DAILY Qty: 30 2RF albuterol sulfate [Ventolin HFA] 90 mcg/actuation HFA aerosol inhaler 2 puff inhalation Q6H PRN (Reason: shortness of breath or wheezing) Qty: 8.5 2RF budesonide-formoterol [Symbicort] 160-4.5 mcg/actuation HFA aerosol inhaler 2 puff inhalation BID Qty: 10.2 2RF pantoprazole [Protonix] 40 mg tablet,delayed release (DR/EC) 40 mg PO DAILY Qty: 30 2RF ergocalciferol (vitamin D2) 1,250 mcg (50,000 unit) capsule 1,250 mcg PO .weekly Qty: 12 0RF Rx Instructions: ON SUN metformin 500 mg tablet 1,000 mg PO BID Ashish's wort 300 mg Tablet 300 mg PO DAILY Vitamin C 500 mg Tablet 1,000 mg PO DAILY magnesium oxide 250 mg magnesium Tablet 500 mg PO BID ferrous sulfate 27 mg iron Tablet 27 mg PO DAILY Fish Oil 60-90-500 mg Capsule 1 cap PO DAILY potassium gluconate 600 mg (99 mg) Tablet 600 mg PO DAILY Collagen Skin Renewal 30-833.3 mg Tablet 1 tab PO DAILY Discharge Orders: Discharge ED (Routine); Ordered 09/20/23 Ordered By: Pamela Perera Referrals: Razia Ugarte FNP [Primary Care Provider] - Coding Level of Care Code ED Telehealth Coordinator for Brock Mason
[2023-09-20 10:00] LABS: Basophils # 0.1 10^3/uL (0.0-0.1); Basophils % 0.4 %; Eosinophils # 0.4 10^3/uL (0.0-0.8); Eosinophils % 2.9 %; Hematocrit 36.2 % (36-47); Lymphocytes # 3.4 10^3/uL (0.8-4.8); Lymphocytes % 25.5 %; Mean Corpuscular HGB Conc 31.5 g/dL (30-55); Mean Corpuscular Hemoglobin 24.4 pg (27-33); Mean Corpuscular Volume 77.4 fl (85-98); Mean Platelet Volume 8.4 fL (7.4-10.4); Monocytes # 0.7 10^3/uL (0.2-0.9); Monocytes % 5.5 %; Neutrophils # 8.64 10^3/uL (1.8-7.7); Neutrophils % 64.8 %; Nucleated Red Blood Cells % 0 %; Platelet Count 303 10^3/cmm (157-399); Red Blood Count 4.68 10^6/uL (3.85-5.65); Red Cell Distribution Width 14.8 % (12.1-15.1); White Blood Count 13.34 10^3/uL (3.29-11.43)
[2023-09-20 10:20] LABS: D Dimer 0.62 ug/mLFEU (0-0.59)
--- NOTE | 2023-09-20 10:21 | USCV_ITS ---
Meghna Paul Age: 38 Gender: F : 1985 Exam Date: 09/20/2023 10:35 Ordering Phys: Pamela Perera Technologist: Mega Antonio Exam Location: [facility] [place] Indication: lt arm pain HISTORY: Upper extremity pain. PROCEDURES: Venous duplex imaging was performed in only the left upper extremity. The following venous structures were evaluated: internal jugular vein, subclavian vein, axillary vein, and brachial veins. In addition, the basilic vein, cephalic vein, radial vein, and ulnar vein. FINDINGS: No evidence of deep vein thrombosis or superficial thrombophlebitis in the left upper extremity. CONCLUSIONS No evidence for left upper extremity deep venous thrombosis. Dr. Lo Meade DO (Electronically Signed) Final Date: 20 September 2023 14:35 S
[2023-09-20 10:22] LABS: Alanine Aminotransferase 11 U/L (0-33); Albumin Level 3.9 g/dL (3.5-5.2); Alkaline Phosphatase 91 U/L (35-105); Anion Gap 15.9 (5-19); Aspartate Amino Transferase 11 U/L (0-32); Blood Urea Nitrogen 10 mg/dL (6-20); Calcium 9.1 mg/dL (8.5-10.5); Carbon Dioxide 25 mmol/L (22-29); Chloride 99 mmol/L (98-107); Globulin 3.1 g/dL (1.3-4.6); Glomerular Filtration Rate 112.5 mL/min (90-130); Glucose 206 mg/dL (65-115); Osmolality Calculated 287 mOsm/kg (285-295); Potassium 3.9 mmol/L (3.5-5.1); Sodium 136 mmol/L (136-145); Total Bilirubin 0.2 mg/dL (0.15-1.2)
[2023-09-20 10:26] LABS: Troponin(5th) Baseline < 6 ng/L (0-10)
== END 2023-09-20 11:37 | disposition home or self-care (01) ==
PROVIDERS: Emergency Provider Physician Assistant; PCP Nurse Practitioner Family
DX: R07.89 Other chest pain (principal); Z79.84 Long term (current) use of oral hypoglycemic drugs; F17.290 Nicotine dependence, other tobacco product, uncomplicated
CPT/HCPCS: 36415; 71045; 80053; 84484; 85025; 85378; 93005; 93971; 99285

== ENCOUNTER → 2024-01-24 13:06 | Outpatient (BNVA) | payer MEDICAID, SELFPAY | PROVIDERS: PCP Nurse Practitioner Family; Visit Provider Nurse Practitioner Family | DX: E11.9 Type 2 diabetes mellitus without complications (principal); F41.9 Anxiety disorder, unspecified; F32.A Depression, unspecified; E11.65 Type 2 diabetes mellitus with hyperglycemia; E55.9 Vitamin D deficiency, unspecified; R53.83 Other fatigue; Z71.3 Dietary counseling and surveillance | CPT/HCPCS: 80053; 80061; 82306; 82607; 83036; 83735; 84443; 85025 ==

== ENCOUNTER → 2024-10-19 11:23 | Outpatient (BNVA) | payer MEDICAID, SELFPAY | PROVIDERS: PCP Nurse Practitioner Family; Visit Provider Nurse Practitioner Family | DX: R50.9 Fever, unspecified (principal) | CPT/HCPCS: 87071; 87880 ==

== ENCOUNTER → 2024-11-01 08:29 | Outpatient (BNVA) | payer MEDICAID, SELFPAY | PROVIDERS: PCP Nurse Practitioner Family; Visit Provider Nurse Practitioner Family | DX: J02.9 Acute pharyngitis, unspecified (principal) | CPT/HCPCS: 87400; 87880 ==